=== PATIENT | female | born 1970 | race Caucasian/White ===

== ENCOUNTER 2020-06-10 14:39 | Observation (INO) | payer BC ==
[~2020-06-10 14:39] MED LIST: Bupivacaine 0.5% 50 ML MDV ONE
[2020-06-10] MEDS ORDERED: Sodium Chloride 0.9% 1,000 ML IV SCH (15:00)
[2020-06-10] MEDS ORDERED: Piperacillin/Tazobactam 4.5 GM in Sodium Chloride 0.9% 100 ML IV ONE (15:30)
[2020-06-10] MEDS ORDERED: Piperacillin/Tazobactam/Dext 4.5 GM in Premix Bag 1 BAG IV ONE (15:30)
[2020-06-10] MEDS ORDERED: Rocuronium 50 MG/5 ML Vial ONE (15:51)
[2020-06-10] MEDS ORDERED: Ondansetron 4 MG/2 ML SDV ONE (15:51)
[2020-06-10] MEDS ORDERED: Dexamethasone 4 MG/ML SDV ONE (15:51)
[2020-06-10] MEDS ORDERED: Succinylcholine 200 MG/10 ML MDV ONE (15:51)
[2020-06-10] MEDS ORDERED: Neostigmine Methylsulfate 1 MG/ML 5 ML Syringe ONE (15:51)
[2020-06-10] MEDS ORDERED: Glycopyrrolate 0.2 MG/ML 5 ML MDV ONE (15:51)
[2020-06-10] MEDS ORDERED: Propofol 200 MG/20 ML SDV ONE (15:51)
[2020-06-10] MEDS ORDERED: fentaNYL 250 MCG/5 ML SDV ONE ×2 (15:52→16:13)
[2020-06-10] MEDS ORDERED: Zolpidem 5 MG Tab PO PRN (16:01)
[2020-06-10] MEDS ORDERED: Acetaminophen/HYDROcodone 325-5 MG Tab PO PRN (16:01)
[2020-06-10] MEDS ORDERED: Benzocaine/Cetylpyridinium/Menthol Lozenge MUCMEM PRN (16:01)
[2020-06-10] MEDS ORDERED: hydrOXYzine HCL 100 MG/2 ML SDV IM PRN (16:01)
[2020-06-10] MEDS ORDERED: Docusate Sodium 100 MG Cap PO PRN (16:01)
[2020-06-10] MEDS ORDERED: Piperacillin/Tazobactam 4.5 GM in Sodium Chloride 0.9% 100 ML IV SCH (16:15)
[2020-06-10] MEDS ORDERED: Lidocaine 1% with EPINEPHrine 1:100,000 50 ML MDV ONE (16:32)
[2020-06-10] MEDS ORDERED: Ketorolac 60 MG/2 ML SDV ONE (16:40)
[2020-06-10] MEDS ORDERED: Sugammadex Sodium 200 MG/2 ML VIAL ONE (16:42)
[2020-06-10] MEDS ORDERED: Naloxone 0.4 MG/ML SDV ONE (16:46)
[2020-06-10] MEDS ORDERED: diphenhydrAMINE 50 MG/ML SDV ONE (16:50)
--- NOTE | 2020-06-10 18:18 | HP ---
REASON FOR EVALUATION: Abdominal pain. HISTORY OF PRESENT ILLNESS: This is a pleasant 49-year-old female who has had right lower quadrant abdominal pain and discomfort. This has been present for approximately 24 hours. The patient initially thought this was due to standard GI upset related to diet, but this continued to worsen. No fevers or chills. Some nausea which is mild. No vomiting. No shortness of breath or chest pain. PAST MEDICAL HISTORY: Bladder repair after a hysterectomy, D and C, vaginal hysterectomy, tubal ligation, and panniculectomy. SOCIAL HISTORY: She is not a smoker. FAMILY HISTORY: Noncontributory. REVIEW OF SYSTEMS: GENERAL: Appropriate for her condition. HEENT: No recent issues. CARDIOVASCULAR: No history of myocardial infarction. RESPIRATORY: No recent COVID exposure. The patient states she might have had this in the past. GASTROINTESTINAL: As above. GENITOURINARY: Bladder injury during hysterectomy. NEUROLOGICAL: No acute changes. PSYCHIATRIC: No acute changes. The remainder review of systems is reviewed and is negative. PHYSICAL EXAMINATION: VITAL SIGNS: Temperature 96.6, blood pressure 116/73, pulse 86, respirations 18, 97% on room air. HEENT: Pupils are equal. NECK: Supple. LUNGS: Clear. CARDIOVASCULAR: Regular rhythm and rate. RESPIRATORY: Lungs are clear to auscultation bilaterally. ABDOMEN: Pain with palpation of right upper quadrant. EXTREMITIES: Full range of motion. NEUROLOGICAL: Oriented x3. PSYCHIATRIC: No gross depression. IMAGING: Shows early appendicitis. LABORATORY RESULTS: COVID negative. ASSESSMENT: Early appendicitis. PLAN: The patient will be taken to the operating room for laparoscopic appendectomy, possible open with bilateral TAP/rectus sheath blocks. We also discussed possibility of open surgery. We discussed our risks, which include along with infection and bleeding, injury to bladder, blood vessels, bowel, and other risks not listed here. The patient understands these risks and wishes to proceed. Of note, patient was also informed that Dr. Connelly/Tamiko Amador will be seeing the patient in a.. Reginaldo Hoover MD /[id number]
[2020-06-11] MEDS: Piperacillin/Tazobactam/Dext 4.5 GM in Premix Bag 1 BAG IV SCH ×3 (00:28→15:05)
--- NOTE | 2020-06-11 08:05 | PN ---
DATE OF SERVICE: 06/11/2020 SUBJECTIVE: The patient is doing well. Pain is well controlled. No nausea, vomiting, shortness of breath, or chest pain. Tolerating diet. OBJECTIVE: VITAL SIGNS: Stable. CARDIOVASCULAR: Regular rhythm and rate. RESPIRATORY: Lungs are clear to auscultation bilaterally. ABDOMEN: Bowel sounds positive. Incisions healing well. ASSESSMENT: Status post appendectomy. PLAN: The patient will be discharged today. Please see discharge summary for further details. Reginaldo Hoover MD /[id number]
[2020-06-11] MEDS: Ibuprofen 600 MG Tab PO PRN ×2 (08:14→15:05)
--- NOTE | 2020-06-11 08:16 | OR ---
DATE OF PROCEDURE: 06/10/2020 SURGEON: Reginaldo Hoover MD PROCEDURE: 1. Transversus abdominis plane block bilaterally. 2. Rectus sheath blocks bilaterally. COMPLICATION: None. NURSE UNIT MANAGER: None. RISKS: Risks, benefits, alternatives, and limitations including, but not limited to, infection, bleeding, injury to abdominal structures were explained to the patient who wished to proceed. PROCEDURE IN DETAIL: The patient was placed supine position. The entire solution was divided into 4 aliquots using approximately 20% each. The left transversus plane was identified first using a 13 megahertz ultrasound probe. This was injected under direct visual guidance. This was then repeated with the right transversus abdominis plane and the bilateral rectus sheaths. As the needle was introduced and advanced, a small amount of fluid was injected to ensure not moving past the peritoneum. At no time was the needle blindly advanced nor did peritoneum entered. The patient tolerated the procedure well. Reginaldo Hoover MD /[id number]
--- NOTE | 2020-06-11 08:20 | DISCH ---
DISCHARGE DIAGNOSIS: Status post appendectomy. SUMMARY OF HOSPITAL COURSE: A pleasant 49-year-old female who underwent uneventful laparoscopic appendectomy for early appendicitis. The patient did well postoperatively. Pain was well controlled. No nausea, vomiting, shortness of breath, or chest pain. Tolerating diet, passing gas. Remains afebrile. She has no specific concerns. FOLLOWUP: Followup with Surgery in 7 to 14 days. ACTIVITY: No lifting greater than 30 pounds x30 days. DISCHARGE MEDICATIONS: Please see MAR for further details. /[id number]
--- NOTE | 2020-06-11 08:20 | OR ---
DATE OF PROCEDURE: 06/10/2020 SURGEON: Reginaldo Hovoer MD PROCEDURE: Laparoscopic appendectomy. FINDINGS: Appendicitis with a small amount of fluid around this without evidence of obvious abscess or peritonitis. COMPLICATIONS: None. PERFORMANCE IMPROVEMENT ANALYST: None. ANESTHETIC: General/local. PATHOLOGY: 1. Appendix. 2. Abdominal appendix cultures. COMPLICATION: None. PERFORMANCE IMPROVEMENT ANALYST: None. RISKS: Risks, benefits, alternatives, and limitations including, but not limited to, infection, bleeding, and perforation of abdominal structures, bladder injury, and other risks not listed here were explained to the patient who wished to proceed. We also discussed open appendectomy, abscess, seroma, hematoma, and other risks not listed here. PROCEDURE IN DETAIL: The patient was placed supine position. A supraumbilical curvilinear incision was made. A Veress needle was used to enter the abdomen. Abdomen was without abnormality. A drop test was performed without abnormality. The appendix was readily identified. This was found to be consist with appendicitis. There was a small amount of fluid around this; however, there was no abscess or significant rupture. There was no peritonitis noted. This was then transected using a pitts load stapler. Minimal bleeding on the staple line was controlled with electrocautery. The pressure was dropped to 7. No abnormal bleeding was noted. The appendix was removed through the umbilical port without difficulty. Abdomen was re-insufflated. The area was irrigated with 1 L of irrigation. The patient was moved to multiple positions to facilitate removal of the fluid. The air was removed. The wick was removed. The wounds were closed with 3-0 Vicryl and 4-0 Vicryl in interrupted running fashion after irrigating the ports. The patient tolerated the procedure well. Reginaldo Hoover MD /[id number]
[2020-06-11] MEDS ORDERED: Acetaminophen 325 MG Tab PO PRN (10:24)
== END 2020-06-11 16:40 | disposition home or self-care (01) ==
LOC: JP.SDS 14:39 → JP.MS 17:36
PROVIDERS: ADMIT Surgery; ATTEND Surgery
DX: K35.80 Unspecified acute appendicitis (principal); Z01.812 Encounter for preprocedural laboratory examination; Z20.822 Contact with and (suspected) exposure to COVID-19; Z79.899 Other long term (current) drug therapy; Z98.890 Other specified postprocedural states
CPT/HCPCS: 36415; 44970; 80048; 85025; 87070; 87075; 87205; 87635; A9270; J0171; J0330; J1100; J1200; J1885; J2310; J2405; J2543; J2704; J2710; J2795; J3010; J3490; J7030; U0002